=== PATIENT | female | born 1935 | race Caucasian/White ===

== ENCOUNTER 2016-07-11 12:16 | Emergency (ER) | payer OTHER ==
[~2016-07-11] VITALS: Ht 152.4 cm; Wt 64.0 kg
[2016-07-11 14:33] LABS: BASOPHIL % 0.4 % (0-2); PLATELET COUNT 207 x10^3mcL (130-400); RED CELL DISTRIBUTION WIDTH 13.2 % (11.5-14.5)
[2016-07-11 14:53] LABS: ALBUMIN 3.8 g/dL (3.4-5.0); ALKALINE PHOSPHATASE 82 U/L (46-116); ALT/SGPT 17 U/L (14-59); AST/SGOT 10 U/L (15-37); BILIRUBIN TOTAL 0.8 mg/dL (0.20-1.00); CALCIUM 9.9 mg/dL (8.5-10.1); CARBON DIOXIDE 26.1 mmol/L (21-32); CHLORIDE SERUM 102 mmol/L (98-107); CREATININE SERUM 1.4 mg/dL (0.6-1.0); GLUCOSE SERUM 121 mg/dL (74-106); SODIUM SERUM 139 mmol/L (136-145); TOTAL PROTEIN, SERUM 7.8 g/dL (6.4-8.2)
[2016-07-11 14:56] LABS: POTASSIUM SERUM 2.7 mmol/L (3.5-5.1)
[2016-07-11 14:57] LABS: T3 TOTAL 0.67 ng/mL
[2016-07-11 15:23] LABS: C REACTIVE PROTEIN 15.6 mg/dL (<=0.9)
[2016-07-11 16:06] LABS: CK-MB 0.7 ng/mL (0-3.6)
[2016-07-11 16:16] LABS: ERYTHROCYTE SED RATE 29 mm/hr (0-30)
[2016-07-11 17:11] LABS: FREE T4 1.32 ng/dL (0.76-1.46); FREE THYROXINE INDEX 3.4 ug/dL (1.4-4.5)
[2016-07-11 18:58] VITALS: BP 128/63
== END 2016-07-11 18:58 | disposition home or self-care (01) ==
LOC: ED 12:16
PROVIDERS: Specialist
DX: K04.7 Periapical abscess without sinus (principal); I10 Essential (primary) hypertension; G90.9 Disorder of the autonomic nervous system, unspecified; E78.00 Pure hypercholesterolemia, unspecified
CPT/HCPCS: 83880; 84439; J2543; J3490; Q0092; Q9967